=== PATIENT | male | born 1955 ===

== ENCOUNTER → 2025-02-24 | Outpatient (CLI) | payer OTHER | END | disposition home or self-care (01) | LOC: TELEHEALTH 08:30 | PROVIDERS: ATTEND Neurological Surgery | DX: I10 Essential (primary) hypertension (principal); N40.0 Benign prostatic hyperplasia without lower urinary tract symptoms; I25.10 Atherosclerotic heart disease of native coronary artery without angina pectoris; M81.0 Age-related osteoporosis without current pathological fracture; R29.6 Repeated falls; M43.22 Fusion of spine, cervical region; M43.26 Fusion of spine, lumbar region ==